=== PATIENT | male | born 1995 | race Caucasian/White ===

== ENCOUNTER 2021-08-15 11:50 | Emergency (ER) | payer OTHER, SELFPAY ==
[2021-08-15 12:02] VITALS: BP 99/66; PULSE 54; RESP 18; TEMP 36.2; O2SAT 97
--- NOTE | 2021-08-15 12:35 | ED.URI ---
HPI - URI/Sore Throat General Chief Complaint: Upper Respiratory Infection Stated Complaint: cough Time Seen by Provider: 08/15/21 12:35 Source: family (Father) Mode of arrival: ambulatory Limitations: other (History of autism and Fragile X) History of Present Illness HPI Narrative: Patient is a 26-year-old male with history of autism brought in by father due to URI symptoms such as cough nasal congestion, on him tested for Covid since I tested positive . Due to patient's history of autism unable to give any history. Father denies any shortness of breath, abdominal pain, nausea, vomiting, diarrhea, or fever. Good appetite and activity. Related Data Allergies Allergy/AdvReac Type Severity Reaction Status Date / Time No Known Allergies Allergy Verified 11/26/20 10:16 Review of Systems Review of Systems: All systems reviewed & are unremarkable except as noted in HPI and below ROS unobtainable: Yes other (History of autism and Fragile X) Constitutional: Constitutional: Reports as per HPI Eyes: Eyes: Reports as per HPI PMFSH Past Medical History Medical History Autism Fragile X syndrome in male Surgical History Surgical History No history of previous surgery Family History Family History Other Family history of human immunodeficiency virus infection Social History Social History Smoking status: Never smoker Alcohol intake: never Exam Const: General: cooperative, healthy appearing, comfortable, no acute distress, well developed, alert and awake Orientation/consciousness: patient oriented x3 HENMT: Head: normal to inspection, normocephalic and atraumatic Ears: hearing grossly normal bilaterally, TM normal on the right and TM normal on the left General nose exam: Normal external nose present, Normal nares present and No nasal discharge present Face and sinus: normal facial exam Mouth: Yes Normal oral and palatal mucosa present, Yes lip normal, Yes tongue normal and Yes oropharynx normal Throat: posterior oropharynx normal, tonsils normal and uvula midline Eyes: General: appearance normal, both eyes and all related structures Pupils: Equal, round and reactive pupils present EOM: EOMs intact bilaterally Neck: Neck: normal visual inspection, full ROM, no lymphadenopathy and no meningeal signs Chest: Chest palpation & inspection: normal inspection of the chest Resp: Effort & Inspection: normal respiratory effort, able to speak in complete sentences, no respiratory distress and not tachypneic Auscultation: clear to auscultation bilaterally, no crackles, no rales, no rhonchi and no wheezes Cardio: Rate: regular rate Rhythm: regular rhythm GI: Inspection: normal to inspection GI Palp: No abdominal tenderness, Yes Soft to palpation, No Tenderness to palpation present (GI), No Guarding due to palpation present (GI), No Rigid due to palpation and No Rebound tenderness present Auscultation: normal bowel sounds : General: Yes no CVA tenderness Back/Spine/Pelvis: Back: no CVA tenderness Skin: General skin exam: normal color, no rashes or lesions noted, elasticity normal and turgor normal Neuro: General: tone normal, moves all extremities, Normal light touch and pain sensation, no meningeal signs, no focal motor deficits and CN's II-XI intact bilaterally Cranial nerves: Yes Equal, round and reactive pupils present Speech: No Abnormal speech present Sensory Exam: No Sensory deficit (Neuro) Extrem: General: normal to inspection, full ROM and capillary refill normal Psych: Appearance: grossly normal and well kempt Mental Status: mental status grossly normal Speech and movement: Normal speech and movement present Affect: normal affect Attitude: cooperative Course Vital Signs Vital si
[2021-08-15 16:01] LABS: EDCOVIDSCREEN Negative (Negative)
[2021-08-15 16:11] VITALS: BP 112/74; PULSE 79; RESP 16; O2SAT 98
== END 2021-08-15 16:30 | disposition home or self-care (01) ==
PROVIDERS: Emergency Provider Emergency Medicine; PCP Family Medicine
DX: J06.9 Acute upper respiratory infection, unspecified (principal); Z20.822 Contact with and (suspected) exposure to COVID-19; F84.0 Autistic disorder; Q99.2 Fragile X chromosome
CPT/HCPCS: 36415; 87426; 87804; 99283; C9803